=== PATIENT | male | born 1960 | race Two or more races ===

== ENCOUNTER 2023-07-21 03:20 | Emergency (ER) | payer OTHER ==
[~2023-07-21] VITALS: Ht 172.7 cm; Wt 75.0 kg
[2023-07-21 03:41] VITALS: BP 127/87; TEMP 98.4; O2SAT 100
[2023-07-21 03:44] VITALS: PULSE 115
[2023-07-21] MEDS ORDERED: TOPUD PO (07:55)
[2023-07-21] MEDS ORDERED: BO1 TP (07:56)
== END 2023-07-21 08:26 | disposition home or self-care (01) ==
LOC: ER 03:20
DX: S52.92XA Unspecified fracture of left forearm, initial encounter for closed fracture (principal); E11.9 Type 2 diabetes mellitus without complications; E78.00 Pure hypercholesterolemia, unspecified; I10 Essential (primary) hypertension; Z86.73 Personal history of transient ischemic attack (TIA), and cerebral infarction without residual deficits; W18.39XA Other fall on same level, initial encounter; Y93.89 Activity, other specified; Y92.89 Other specified places as the place of occurrence of the external cause; Y99.8 Other external cause status
CPT/HCPCS: 29125; 70486; 73060; 73090; 73560; 93005; 99284; A4565